=== PATIENT | female | born 1955 | race Caucasian/White ===

== ENCOUNTER 2017-02-09 17:20 | Observation (INO) | payer OTHER ==
[~2017-02-09] VITALS: Ht 160 cm; Wt 74.8 kg
[2017-02-09 18:19] LABS: Basophils # (auto) 0.1 uL; Basophils % (auto) 1.2 % (0.0-2.0); Eosinophils # (auto) 0.1 uL; Eosinophils % (auto) 0.8 % (0.0-7.0); Hematocrit 44.8 % (36.0-46.0); Hemoglobin 14.8 g/dL (12.2-16.2); Lymphocytes # (auto) 2.5 uL; Lymphocytes % (auto) 29.4 % (10.0-50.0); Mean Corpuscular Hemoglobin 30.1 pg (28.0-32.0); Mean Corpuscular Volume 91.3 fL (80.0-100.0); Mean Platelet Volume 7.9 fL (7.4-10.4); Monocytes # (auto) 0.5 uL; Monocytes % (auto) 6.3 % (0.0-12.0); Neutrophils # (auto) 5.3 uL; Neutrophils % (auto) 62.3 % (37.0-80.0); Platelet Count (auto) 501 10^3/uL (140-450); Red Cell Distribution Width 13.5 % (11.6-16.0); White Blood Cell 8.5 10^3/uL (4.4-10.8)
[2017-02-09 18:54] LABS: Albumin 3.7 g/dL (3.4-5.0); Alkaline Phosphatase 86 U/L (45-117); Anion Gap 12 (5-15); Aspartate Aminotransferase 19 U/L (15-37); BUN/Creatinine Ratio 14.8; Bilirubin, Total 0.4 mg/dL (0.2-1.0); Blood Urea Nitrogen 12 mg/dL (7-18); Calcium 9.3 mg/dL (8.5-10.1); Carbon Dioxide 22 mmol/L (21-32); Chloride 110 mmol/L (98-107); GFR African American 92 mL/min; GFR Non-African American 76 mL/min; Glucose 108 mg/dL (74-106); Potassium 3.7 mmol/L (3.5-5.1); Sodium 144 mmol/L (136-145); Total Protein 7.5 g/dL (6.4-8.2)
[2017-02-09] MEDS ORDERED: ONDANSETRON HCL 4 MG/2 ML VIAL IV ONE (21:30)
[2017-02-09] MEDS ORDERED: MORPHINE SULF INJ 2 MG/ML SYRINGE 1ML IV ONE (21:30)
[2017-02-09] MEDS ORDERED: SODIUM CHLORIDE 0.9% 500 ML IV ONE (21:45)
[2017-02-09] MEDS ORDERED: ONDANSETRON ODT 4 MG TAB PO ONE (21:45)
[2017-02-09] MEDS ORDERED: traMADol HCL 50 MG TAB PO ONE (21:45)
[2017-02-09] MEDS ORDERED: cloNIDine HCL 0.1 MG TAB PO ONE (22:00)
[2017-02-10 01:02] VITALS: BP 138/74
== END 2017-02-10 00:24 | disposition home or self-care (01) | DRG 563 ==
LOC: ER 17:26 → OVERFLOW 20:55 → ER 02-10 00:24
PROVIDERS: ADMIT Emergency Medicine; ATTEND Emergency Medicine
DX: S29.012A Strain of muscle and tendon of back wall of thorax, initial encounter (principal); R51 Headache; I10 Essential (primary) hypertension; F41.9 Anxiety disorder, unspecified; R42 Dizziness and giddiness; X58.XXXA Exposure to other specified factors, initial encounter; Y93.89 Activity, other specified; Y92.89 Other specified places as the place of occurrence of the external cause; Y99.8 Other external cause status
CPT/HCPCS: 36415; 72128; 80053; 84484; 85025; 93005; 99285; G0378; Q0162